=== PATIENT | female | born 1990 | race Two or more races ===

== ENCOUNTER 2022-10-04 13:46 | Emergency (ER) | payer OTHER ==
[~2022-10-04] VITALS: Ht 157.5 cm; Wt 73.2 kg
[2022-10-04 14:18] VITALS: BP 150/101
[2022-10-04 15:58] LABS: Urine Bacteria FEW /hpf (None Seen); Urine Blood Negative /uL (Negative); Urine WBC 1 /hpf (0 - 5)
[2022-10-04] MEDS ORDERED: LEVO150T10 PO (16:25)
[2022-10-04] MEDS ORDERED: ACET-1080 PO (16:25)
== END 2022-10-04 16:32 | disposition home or self-care (01) ==
LOC: ER 13:46
DX: G44.209 Tension-type headache, unspecified, not intractable (principal); R56.9 Unspecified convulsions; F43.9 Reaction to severe stress, unspecified; Z76.0 Encounter for issue of repeat prescription
CPT/HCPCS: 70450; 81001